=== PATIENT | female | born 1990 | race African-American/Black ===

== ENCOUNTER 2017-01-05 11:21 | Emergency (ER) | payer OTHER ==
[~2017-01-05] VITALS: Ht 167.6 cm; Wt 54.9 kg
[2017-01-05] MEDS ORDERED: NKM (11:54)
[2017-01-05] MEDS ORDERED: NS Irrig 1000ml 1,000 ML IRRIG ONE (12:15)
[2017-01-05] MEDS ORDERED: Morgan Lens TOPIC ONE (12:15)
[2017-01-05] MEDS ORDERED: Proparacaine 0.5% Opth Soln 15ml RIGHT EYE ONE (12:15)
--- NOTE | 2017-01-05 12:22 | Emergency Room Report ---
History of Present Illness General Chief Complaint: Eye Problems Source: Patient Present Illness HPI The patient is a 26-year-old female presenting with right eye pain after she states cat fur fell into it. The patient was wearing contacts and immediately removed the contact lens. The patient did not irrigate the eye. The patient states that the sensation is less this morning but was last night. Pain is described as a 3/10 dull ache it does not radiate. Patient denies any changes in vision. Pt denies allergies to cats. Pt denies other symptoms including N, V , F, chills, MADRID, dizziness Allergies: Coded Allergies: CRANBERRY (Verified Allergy, Unknown, 01/05/17) Patient History Past Medical History: see triage record Pertinent Family History: none Last Menstrual Period: 12/25/2016 : 2 Para: 0 Reviewed Nursing Documentation: PMH: Agreed, PSxH: Agreed Nursing Documentation-PMH Past Medical History: No Stated History Review of Systems All Other Systems: negative except mentioned in HPI Physical Exam Vital Signs Date Time Temp Pulse Resp B/P Pulse Ox O2 Delivery O2 Flow Rate FiO2 01/05/17 11:49 98.2 83 16 138/92 99 Room Air Sp02 EP Interpretation: reviewed, normal General Appearance: no apparent distress, alert, GCS 15, non-toxic Head: normocephalic, atraumatic Eyes: bilateral eye EOMI, bilateral eye PERRL, bilateral eye normal inspection ENT: hearing grossly normal, normal pharynx, no angioedema, normal voice Neck: full range of motion, supple/symm/no masses Respiratory: chest non-tender, lungs clear, normal breath sounds, speaking full sentences Musculoskeletal: back normal, gait/station normal, normal range of motion, non- tender Neurologic: alert, oriented x3, responsive, motor strength/tone normal, sensory intact, speech normal Psychiatric: judgement/insight normal, memory normal, mood/affect normal, no suicidal/homicidal ideation Skin: normal color, no rash, warm/dry, well hydrated Lymphatic: no adenopathy Medical Decision Making PA Attestation Dr. Conroy is my supervising physician. Patient management was discussed with my supervising physician Diagnostic Impression: Primary Impression: Eye foreign bodies ER Course The patient is a 26-year-old female presenting with right eye pain after she states cat fur fell into it. Differential diagnoses considered but not limited to foreign body, corneal abrasion, allergic conjunctivitis, bacterial conjunctivitis, viral conjunctivitis, blepharitiis, hordeolum Physical exam vitals are within normal limits. No apparent distress: HEENT exam: Pupils are equally round and reactive to light.EOMI No injection. No lid edema. No discharge. No foreign body is seen Proparacaine applied to the right eye. Danial lenses used with 1 L of normal saline. The patient states that she is feeling much better and will be discharged home with a prescription for artificial tears. 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 Last Vital Signs Date Time Temp Pulse Resp B/P Pulse Ox O2 Delivery O2 Flow Rate FiO2 01/05/17 11:49 98.2 83 16 138/92 99 Room Air Status: improved Disposition: HOME, SELF-CARE Condition: Improved Scripts Polyvinyl Alcohol/Povidone (ARTIFICIAL TEARS DROPS) 15 Ml Drops 15 ML OP PRN, #15 ML Prov: LIZA DUBON 01/05/17 LIZA DUBON Jan 05, 2017 12:22
[2017-01-05 14:00] VITALS: BP 130/85
[2017-01-05] MEDS ORDERED: ARTIFICIAL TEAR15 M4 OP (14:19)
[2017-01-05 14:29] VITALS: BP 130/85
== END 2017-01-05 14:29 | disposition home or self-care (01) ==
LOC: EMR 12:29
DX: T15.91XA Foreign body on external eye, part unspecified, right eye, initial encounter (principal); H57.11 Ocular pain, right eye
CPT/HCPCS: 96374

== ENCOUNTER 2017-04-06 13:44 | Emergency (ER) | payer OTHER ==
[~2017-04-06] VITALS: Ht 168.9 cm; Wt 52.6 kg
[~2017-04-06 13:44] MED LIST: ARTIFICIAL TEAR15 M4 OP; NKM
[2017-04-06] MEDS ORDERED: Tetracaine 0.5% Opth Soln LEFT EYE ONE (14:00)
[2017-04-06] MEDS ORDERED: Fluorescein Strips ONE (14:00)
[2017-04-06] MEDS ORDERED: Tetracaine 0.5% Opth Soln RIGHT EYE ONE (14:00)
[2017-04-06 14:08] VITALS: BP 97/62
[2017-04-06] MEDS ORDERED: VIGAMOX1 DROP BOTH EYES (14:20)
--- NOTE | 2017-04-06 14:20 | Emergency Room Report ---
History of Present Illness General Chief Complaint: Eye Problems Source: Medical Record Present Illness HPI 27 y/o female c/o bilateral eye discomfort x 1 week. States she feels like she has something in her eyes bilaterally. States she has cats and thinks maybe a cat hair got in there. States she has discharge from eyes bilaterally and that she uses contact lenses. Denies actually seeing FB in eye and states she does occasionally sleep with contact lenses and had just prior to onset of sxs 1 week ago. Denies any eye pain, blurred vision or vision loss. Allergies: Coded Allergies: CRANBERRY (Verified Allergy, Unknown, 01/05/17) Patient History Past Medical History: see triage record Past Surgical History: none Pertinent Family History: none Last Menstrual Period: 03/14/17 Now: No : 1 Para: 0 Immunizations: UTD Reviewed Nursing Documentation: PMH: Agreed, PSxH: Agreed Nursing Documentation-PMH Past Medical History: No Stated History Review of Systems All Other Systems: negative except mentioned in HPI Physical Exam Vital Signs Date Time Temp Pulse Resp B/P Pulse Ox O2 Delivery O2 Flow Rate FiO2 04/06/17 13:49 98.1 93 18 93/57 98 Room Air Sp02 EP Interpretation: reviewed, normal General Appearance: no apparent distress, alert, GCS 15, non-toxic Head: normocephalic, atraumatic Eyes: bilateral eye EOMI, bilateral eye PERRL, bilateral eye fluoroscene uptake - superficial corneal abrasion present w/o evidence of FB, bilateral eye normal inspection ENT: hearing grossly normal, normal pharynx, no angioedema, normal voice Neck: full range of motion, supple/symm/no masses Respiratory: chest non-tender, lungs clear, normal breath sounds, speaking full sentences Cardiovascular #1: regular rate, rhythm, no edema Musculoskeletal: gait/station normal Neurologic: alert, oriented x3, responsive, motor strength/tone normal, sensory intact, speech normal Psychiatric: judgement/insight normal, memory normal, mood/affect normal, no suicidal/homicidal ideation Skin: normal color, no rash, warm/dry, well hydrated Lymphatic: no adenopathy Medical Decision Making PA Attestation Dr. Soria my supervising physician with whom patient management has been discussed with. Diagnostic Impression: Primary Impression: Corneal abrasion of both eyes due to contact lens ER Course Pt. presents to the ED c/o bilat eye discomfort Ddx considered but are not limited to glaucoma, corneal abrasion, bacterial conjunctivitis, allergic conjunctivitis, viral conjunctivitis, CVA, ophthalmic thrombosis, retinal detachment Vital signs: are WNL, pt. is afebrile H&PE are most consistent with corneal abrasion ORDERS: Ramirez lamp with fluoroscopy, ocular pressure with manisha-pen unable to be obtained due to equipment malfunction ED INTERVENTIONS: Tetracaine 2 ggts, eye irrigation DISCHARGE: At this time pt. is stable for d/c to home. Will provide printed patient care instructions, and any necessary prescriptions. Care plan and follow up instructions have been discussed with the patient prior to discharge. Chest X-Ray Diagnostic Results Chest X-Ray Ordered: No Last Vital Signs Date Time Temp Pulse Resp B/P Pulse Ox O2 Delivery O2 Flow Rate FiO2 04/06/17 14:08 98.3 91 17 97/62 99 Room Air Status: improved Disposition: HOME, SELF-CARE Condition: Improved Scripts Moxifloxacin HCl (Vigamox) 3 Ml Drops 1 DROP BOTH EYES THREE TIMES A DAY for 7 Days, #3 ML 0 Refills Prov: JETT REIS 04/06/17 Patient Instructions: Corneal Abrasion Additional Instructions: Take medication as directed. Patient advised on symptoms of Corneal Abrasions. Advised if you think you have something in your eye, you can try to remove it. But be careful not to irritate your eye. You can also pull your upper eyelid over your lower eyelid to try to brush away the object, such as an eye lash. Do not rub or press on it. Blink a few times to see if you can remove anything that might be in your eye. If that doesnt work, rinse your eye with water once or twice. But rinsing more than a few times can make the problem worse. Patient is to go to ER right away if you have the symptoms above and your eye still hurts a lot after youve tried rinsing it. While waiting to see the doctor, you might feel better if you sit quietly in a darkened room with your eyes closed. JETT REIS Apr 06, 2017 14:20
[2017-04-06 14:51] VITALS: BP 97/62
== END 2017-04-06 15:10 | disposition home or self-care (01) ==
LOC: EMR 14:16
DX: H18.823 Corneal disorder due to contact lens, bilateral (principal)
CPT/HCPCS: 99283

== ENCOUNTER 2018-06-14 03:48 | Emergency (ER) | payer SELFPAY ==
[~2018-06-14] VITALS: Ht 167.6 cm; Wt 49.9 kg
[~2018-06-14 03:48] MED LIST changes: +VIGAMOX1 DROP BOTH EYES
[2018-06-14 04:00] VITALS: BP 123/75
[2018-06-14] MEDS ORDERED: BACTRIM DS TAB1 EAC1 ORAL (04:05)
[2018-06-14] MEDS ORDERED: MUPIROCIN22 GM TOPIC (04:05)
--- NOTE | 2018-06-14 04:05 | Emergency Room Report ---
History of Present Illness General Chief Complaint: To Be Triaged Source: Patient Present Illness HPI This is a 28-year-old female with no cerumen past medical history. She presents with bumps on her right side her face. Yesterday at work and walk into a spider web. Now she noticed a bump on her right face. She was concerned that she was bitten by a spider his poisoning. She felt short of breath. She felt numbness to her body. Denies any fever chills but denies any sensation of a spider biting her. No other complaint. Allergies: Coded Allergies: CRANBERRY (Verified Allergy, Unknown, 01/05/17) Patient History Past Medical History: none, see triage record, old chart reviewed Past Surgical History: none Pertinent Family History: none Social History: Denies: smoking Now: No Immunizations: other Reviewed Nursing Documentation: PMH: Agreed; PSxH: Agreed Review of Systems Eye: Denies: eye pain, blurred vision ENT: Denies: ear pain, nose congestion, throat swelling Respiratory: Denies: cough, shortness of breath Cardiovascular: Denies: chest pain, palpitations Gastrointestinal: Denies: abdominal pain, diarrhea, nausea, vomiting Musculoskeletal: Denies: back pain, joint pain Skin: Denies: rash Neurological: Denies: headache, numbness Endocrine: Denies: increased thirst, increased urine Hematologic/Lymphatic: Denies: easy bruising All Other Systems: negative except mentioned in HPI Physical Exam vitals normal Sp02 EP Interpretation: reviewed, normal General Appearance: well appearing, no apparent distress, alert Head: normocephalic, atraumatic Eyes: bilateral eye PERRL, bilateral eye EOMI ENT: hearing grossly normal, normal pharynx, other - Right face: One area of induration of 3 mm. No abscess seen. Neck: full range of motion, supple, no meningismus Respiratory: chest non-tender, lungs clear, normal breath sounds Cardiovascular #1: regular rate, rhythm, no murmur Gastrointestinal: normal bowel sounds, non tender, no mass, no organomegaly, no bruit, non-distended Musculoskeletal: back normal, gait/station normal, normal range of motion Psychiatric: mood/affect normal Skin: warm/dry Medical Decision Making Diagnostic Impression: Primary Impression: Cellulitis, face ER Course She with folliculitis/cellulitis of her face. No evidence of any abscess. There is no evidence of any bite. Patient reassured. We'll discharge home with antibiotics. Status: unchanged Disposition: HOME, SELF-CARE Condition: Stable Scripts Mupirocin* (MUPIROCIN*) 22 Gm Oint...g. 1 APPLIC TOPIC THREE TIMES A DAY, #22 GM Prov: ARACELIS VILLARREAL M.D. 06/14/18 Trimethoprim/Sulfamethoxazole 160/800* (BACTRIM DS TABLET*) 1 Each Tablet 1 TAB ORAL Q12H, #14 TAB 0 Refills Prov: ARACELIS VILLARREAL M.D. 06/14/18 Additional Instructions: Clean area with hydrogen peroxide first. Then apply antibiotic ointment. Follow-up with your doctor in 7 days. Return if worse. ARACELIS VILLARREAL M.D. Jun 14, 2018 04:05
[2018-06-14 04:13] VITALS: BP 123/75
== END 2018-06-14 04:13 | disposition home or self-care (01) ==
LOC: EMR 04:12
DX: L03.211 Cellulitis of face (principal)
CPT/HCPCS: 99283